=== PATIENT | male | born 1970 | race African-American/Black ===

== ENCOUNTER 2020-10-22 11:54 | Emergency (ER) | payer OTHER ==
[~2020-10-22] VITALS: Ht 188 cm; Wt 122.5 kg
[~2020-10-22 11:54] MED LIST: COZAAR 25 MG TA25 M1 PO; JARDIANCE10 MG PO; METFORMIN HCL500 MG PO; ZOCOR 10 MG TAB10 M1 PO
[2020-10-22] MEDS ORDERED: JARDIANCE10 MG PO (12:04)
[2020-10-22] MEDS ORDERED: INSULIN SUBQ (12:05)
[2020-10-22 12:53] LABS: ABSOLUTE BASOPHILS 0.1 thou/uL (0.0-0.2); ABSOLUTE EOSINOPHILS 0.3 thou/uL (0.0-0.7); ABSOLUTE LYMPHOCYTES 1.1 thou/uL (0.8-5.3); ABSOLUTE MONOCYTES 0.6 thou/uL (0.0-1.2); ABSOLUTE NEUTROPHILS 7.2 thou/uL (1.6-8.1); BASOPHILS 0.6 %; EOSINOPHILS 3.4 %; HEMATOCRIT 43.6 % (42.0-52.0); HEMOGLOBIN 15.1 gm/dL (14.0-18.0); LYMPHOCYTES 12.2 %; MCHC 34.6 g/dL (28.0-37.0); MCV 83.8 fL (80.0-100.0); MONOCYTES 6.4 %; MPV 8.7 fl. (7.2-11.1); NUCLEATED RBCS 0 /100WBC; PLATELET COUNT* 183 thou/uL (150-400); POLYS 77.4 %; RDW-CV 12.8 % (10.5-14.5); WBC 9.4 thou/uL (4.0-11.0)
[2020-10-22 13:03] LABS: CALCIUM 8.4 mg/dL (8.5-10.1); CREATININE 1.1 mg/dL (0.6-1.3); POTASSIUM 4.1 mmol/L (3.5-5.1)
[2020-10-22 13:07] LABS: ALBUMIN 3.8 g/dL (3.4-5.0); TOTAL BILIRUBIN 0.4 mg/dL (<0.1-1.0); TOTAL PROTEIN 7.1 g/dL (6.4-8.2)
[2020-10-22 15:53] VITALS: BP 151/70
== END 2020-10-22 15:54 | disposition home or self-care (01) ==
LOC: M.ERS 11:54
PROVIDERS: Emergency Medicine
DX: R10.31 Right lower quadrant pain (principal); E11.9 Type 2 diabetes mellitus without complications; I10 Essential (primary) hypertension; Z79.899 Other long term (current) drug therapy